=== PATIENT | male | born 2000 | race Caucasian/White ===

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

== ENCOUNTER 2018-08-03 09:18 | Emergency (ER) | payer OTHER ==
[2018-08-03] MEDS ORDERED: NS 1,000 ML IV ONE (09:42)
--- NOTE | 2018-08-03 09:42 | EDPHY ---
H & P Stated Complaint: fever and swollen neck for approx 4 days Time Seen by Provider: 08/03/18 09:38 HPI/ROS: HPI: This is a 17-year-old male who presents with Chief Complaint: fever and sore neck for approx 4 days Location: neck Quality: Fever and sore Duration:4 days Signs and Symptoms: + fever, no nausea, no vomiting, no diarrhea, no urinary symptoms, no chest pain, no shortness of breath, no wheezing, no cough, no neck stiffness, no joint pain, + swollen glands, no ear pain, no rash Timing: acute Severity: Moderate Context: Patient is originally from [place], [place], student at [employer], presents with complaints of 4 day history of sore throat accompanied by fever of T-max of a 101 last night relieved by Tylenol and accompanied by swollen glands. Patient reports this morning he woke up with some swelling in his neck but denies neck stiffness. Brother had history of meningitis and parents were concerned so sent him to the emergency room for further evaluation. Patient reports that he did get his meningococcal vaccine his freshman year of college. Reports that he has decreased appetite but able to drink fluids without any difficulty. Denies any drooling, rash. Patient has not had any Tylenol since last night and is afebrile in triage. Patient complains of muscle aches and fatigue for the last several days. Modifying Factors: Tylenol. Comment: ROS: see HPI Constitutional: + fever, no chills, no weight loss Eyes: No blurred vision Respiratory: No shortness of breath, no cough Cardiovascular: No chest pain, no palpitations Gastrointestinal: No nausea, no vomiting, no diarrhea, no hematemesis, no blood in stool Genitourinary: No dysuria, no blood in urine Extremities: No myalgias, no edema Neurologic: No weakness, no numbness Skin: No rashes, no petechiae Hematologic: No bruising, no bleeding MEDICAL/SURGICAL/SOCIAL HISTORY: Medical history: Generally healthy. Does not take any regular medications. Surgical history: Denies Social history: Never smoked. Family history noncontributory. CONSTITUTIONAL: Well-developed, well-nourished, polite teenage male, awake and alert, no obvious distress HEENT: Atraumatic and normocephalic, PERRL, EOMI. Nares patent; no rhinorrhea; no nasal mucosal edema. Tympanic membranes clear. Oropharynx clear, tonsils 2 + with moderate erythema; no exudate and moist pink mucosa. Airway patent. + spotty cervical lymphadenopathy. No meningismus. Cardiovascular: Normal S1/S2, regular rate, regular rhythm, without murmur rub or gallop. PULMONARY/CHEST: Symmetrical and nontender. Clear to auscultation bilaterally. Good air movement. No accessory muscle usage. ABDOMEN: Soft, nondistended, nontender, no rebound, no guarding, no peritoneal signs, no masses or organomegaly. No CVAT. EXTREMITIES: 2/2 pulses, strength 5/5, no deformities, no clubbing, no cyanosis or edema. NEUROLOGICAL: no focal neuro deficits. GCS 15. SKIN: Warm and dry, no erythema. no rash. Good capillary refill. Source: Patient Exam Limitations: No limitations - Personal History Current Tetanus/Diphtheria Vaccine: Yes Current Tetanus Diphtheria and Acellular Pertussis (TDAP): Yes Tetanus Vaccine Date: 2016 - Medical/Surgical History Hx Asthma: No Hx Chronic Respiratory Disease: No Hx Diabetes: No Hx Cardiac Disease: No Hx Renal Disease: No Hx Cirrhosis: No Hx Alcoholism: No Hx HIV/AIDS: No Hx Splenectomy or Spleen Trauma: No Other PMH: DENIES - Social History Smoking Status: Never smoked Constitutional: Initial Vital Signs Temperature (C) 37.6 C 08/03/18 09:24 Heart Rate 90 08/03/18 09:24 Respiratory Rate 18 08/03/18 09:24 Blood Pressure 140/76 H 08/03/18 09:24 O2 Sat (%) 93 08/03/18 09:24 O2 Delivery Mode Room Air Allergies/Adverse Reactions: No Known Allergies Allergy (Verified 08/03/18 09:24) Home Medications: Medication Instructions Recorded Cyclobenzaprine [Flexeril 10 MG 10 mg PO Q8 PRN #10 tab 08/03/18 (*)] Medical Decision Making ED Course/Re-evaluation: Vital signs reviewed and stable upon arrival. No systemic signs. Influenza, strep, mono, labs, IV fluids, IV medications ordered Low yield for meningitis at this time. Given 1 L normal saline, IV Decadron 10 mg, IV Toradol 30 mg 1055: Labs reviewed. Screven positive. No signs of leukocytosis/anemia/platelet dysfunction/JULY/electrolyte imbalance. Strep and influenza negative. No splenomegaly appreciated. No indication for LP at this time after discussion with attending and his evaluation of the patient. Reassessed patient who reports moderate relief of symptoms. Patient will follow up with [facility] in the next 5-7 days and advised supportive care. Discussed mono precautions. Patient requested Flexeril at discharge from muscle aches and prescription provided. This patient was seen under the supervision of my secondary supervising physician. I evaluated care for this patient independently. Discussed this patient with Dr. Blackman. Differential Diagnosis: Adult fever including but not limited to viral syndromes including influenza, urinary tract infection, pneumonia and sepsis. - Data Points Laboratory Results: Laboratory Results 08/03/18 09:45 08/03/18 09:45 08/03/18 08/03/18 08/03/18 Unknown 09:45 09:45 WBC RBC Hgb Hct MCV MCH MCHC RDW Plt Count MPV Neut % (Auto) Lymph % (Auto) Screven % (Auto) Eos % (Auto) Baso % (Auto) Nucleat RBC Rel Count Absolute Neuts (auto) Absolute Lymphs (auto) Absolute Monos (auto) Absolute Eos (auto) Absolute Basos (auto) Absolute Nucleated RBC Immature Gran % Seg Neutrophils % Band Neutrophils % Lymphocytes % Monocytes % Eosinophils % Basophils % Metamyelocytes % Myelocytes % Promyelocytes % Blast Cells % Immature Gran # Absolute Seg Neuts Absolute Band Neuts Absolute Lymphocytes Absolute Monocytes Absolute Eosinophils Absolute Basophils Absolute Metamyelocyte Absolute Myelocytes Absolute Promyelocytes Absolute Plasma Cells Nucleated RBCs Atypical Lymphocytes Absolute Blast Cells Plasma Cells % Platelet Estimate Sodium 137 mEq/L mEq/L (135-145) Potassium 4.4 mEq/L mEq/L (3.3-5.0) Chloride 101 mEq/L mEq/L (97-110) Carbon Dioxide 28 mEq/l mEq/l (22-31) Anion Gap 8 mEq/L mEq/L (8-16) BUN 15 mg/dL mg/dL (7-23) Creatinine 1.1 mg/dL mg/dL (0.7-1.3) Estimated GFR > 60 Glucose 86 mg/dL mg/dL (70-100) Calcium 9.5 mg/dL mg/dL (8.5-10.4) Nasal Influenza A PCR Nasal Influenza B PCR Monoscreen POSITIVE H (NEGATIVE) Group A Strep Screen Group A Strep DNA Pending 08/03/18 08/03/18 09:45 09:45 WBC 6.87 10^3/uL 10^3/uL (3.80-9.50) RBC 5.21 10^6/uL 10^6/uL (4.40-6.38) Hgb 16.0 g/dL g/dL (13.7-17.5) Hct 46.4 % % (40.0-51.0) MCV 89.1 fL fL (81.5-99.8) MCH 30.7 pg pg (27.9-34.1) MCHC 34.5 g/dL g/dL (32.4-36.7) RDW 13.2 % % (11.5-15.2) Plt Count 123 10^3/uL L 10^3/uL (150-400) MPV 10.7 fL fL (8.7-11.7) Neut % (Auto) Not Reported Lymph % (Auto) Not Reported Screven % (Auto) Not Reported Eos % (Auto) Not Reported Baso % (Auto) Not Reported Nucleat RBC Rel Count Not Reported Absolute Neuts (auto) Not Reported Absolute Lymphs (auto) Not Reported Absolute Monos (auto) Not Reported Absolute Eos (auto) Not Reported Absolute Basos (auto) Not Reported Absolute Nucleated RBC Not Reported Immature Gran % Not Reported Seg Neutrophils % 40.0 % % Band Neutrophils % 21.0 % % Lymphocytes % 21.0 % % Monocytes % 12.0 % % Eosinophils % 0.0 % % Basophils % 0.0 % % Metamyelocytes % 0.0 % % Myelocytes % 0.0 % % Promyelocytes % 0.0 % % Blast Cells % 0.0 % % Immature Gran # Not Reported Absolute Seg Neuts 2.75 10^/uL 10^/uL (1.70-6.50) Absolute Band Neuts 1.44 10^3/uL H 10^3/uL (0.00-0.70) Absolute Lymphocytes 1.44 10^3/uL 10^3/uL (1.00-3.00) Absolute Monocytes 0.82 10^3/uL H 10^3/uL (0.30-0.80) Absolute Eosinophils 0.00 10^3/uL L 10^3/uL (0.03-0.40) Absolute Basophils 0.00 10^3/uL L 10^3/uL (0.02-0.10) Absolute Metamyelocyte 0.00 10^3/mL 10^3/mL (0.00-0.00) Absolute Myelocytes 0.00 10^3/mL 10^3/mL (0.00-0.00) Absolute Promyelocytes 0.00 10^3/uL 10^3/uL (0.00-0.00) Absolute Plasma Cells 0.00 10^3/uL 10^3/uL (0.00-0.00) Nucleated RBCs 0 /100 WBC /100 WBC (0-0) Atypical Lymphocytes 1+ H Absolute Blast Cells 0.00 10^3/uL 10^3/uL (0.00-0.00) Plasma Cells % 0.0 % % Platelet Estimate DECREASED L (ADEQ) Sodium Potassium Chloride Carbon Dioxide Anion Gap BUN Creatinine Estimated GFR Glucose Calcium Nasal Influenza A PCR NEGATIVE FOR FLU A (NEGATIVE) Nasal Influenza B PCR NEGATIVE FOR FLU B (NEGATIVE) Monoscreen Group A Strep Screen NEGATIVE (NEGATIVE) Group A Strep DNA Medications Given: Discontinued Medications Dexamethasone (Decadron Injection) 10 mg IVP EDNOW ONE Stop: 08/03/18 09:44 Last Admin: 08/03/18 09:55 Dose: 10 mg Sodium Chloride (Ns) 1,000 mls @ 0 mls/hr IV ONCE ONE; Wide Open PRN Reason: Protocol Stop: 08/03/18 09:43 Last Admin: 08/03/18 09:55 Dose: 1,000 mls Ketorolac Tromethamine (Toradol) 30 mg IVP EDNOW ONE Stop: 08/03/18 09:44 Last Admin: 08/03/18 09:54 Dose: 30 mg Departure - Departure Disposition: Home, Routine, Self-Care Clinical Impression: Infectious mononucleosis Qualifiers: Infectious mononucleosis etiology: unspecified organism Infectious mononucleosis complication: without complication Qualified Code(s): B27.90 - Infectious mononucleosis, unspecified without complication Condition: Good Instructions: Mononucleosis (ED) Additional Instructions: Take Tylenol 650 mg every 4 hours and/or Ibuprofen 600 mg every 8 hours with food as needed for pain/fever. Flexeril every 8 hr as needed for muscle spasms. Rest as much as possible until you are feeling better. Avoid any contact or physical activity for the next 3-4 weeks. Follow up with student [facility] in the next 2-3 days. Return to the ER immediately if you cannot swallow, have drooling, fevers, neck stiffness, cannot open your jaw, or any other symptoms that concern you. Referrals: [facility] SHANKAR ,. [Clinic] - 2-3 days without fail Stand Alone Forms: School Excuse Prescriptions: Cyclobenzaprine [Flexeril 10 MG (*)] 10 mg PO Q8 PRN #10 tab PRN Reason: Spasms
[2018-08-03] MEDS ORDERED: KETOROLAC 30 MG/1 ML SDV IVP ONE (09:43)
[2018-08-03] MEDS ORDERED: DEXAMETHASONE 10 MG/ML VIAL IVP ONE (09:43)
[2018-08-03 10:38] LABS: PLATELET COUNT 123 10^3/uL (150-400)
[2018-08-03 12:12] VITALS: BP 136/91
[2018-08-03 16:18] LABS: GROUP A STREP DNA (THROAT) POSITIVE (NEGATIVE)
== END 2018-08-03 12:12 | disposition home or self-care (01) ==
DX: R50.9 Fever, unspecified (principal); R07.0 Pain in throat; B27.90 Infectious mononucleosis, unspecified without complication; E86.9 Volume depletion, unspecified
CPT/HCPCS: 96374; J1100; J1885